=== PATIENT | male | born 1945 | race Hispanic/Latino ===

== ENCOUNTER 2020-04-30 13:18 | Emergency (ER) | payer MEDICARE ==
[~2020-04-30] VITALS: Ht 165.1 cm; Wt 66.8 kg
--- NOTE | 2020-04-30 13:19 | NUR ---
Used [employer] designer line ID# [id number] [place] for translation.
[2020-04-30] MEDS ORDERED: SODIUM CHLORIDE 0.9% 500ML 500 ML IV ONE ×2 (13:30→13:45)
--- NOTE | 2020-04-30 13:30 | NUR ---
Called ultrasound for exam
--- NOTE | 2020-04-30 13:34 | Emergency Department Note ---
History of Present Illnes History of Present Illness History of Present Illness This is a 75 year old male . Historian: Patient Arrival Mode: Car History limited by: language barrier [employer] Required: No Onset (how long ago): day(s) Location: Right sided abd pain Quality: pain Radiation: Reports non-radiation Severity: mild Onset quality: gradual Duration (how long): day(s) Timing of current episode: constant Progression: unchanged Chronicity: new Context: Denies recent illness, Denies recent surgery, Denies recent immobilization, Denies recent travel, Denies trauma/injury, Denies new medications, Denies hx of DVT/PE, Denies non-compliance w/ medications, Denies other Relieving factors: none Exacerbating factors: none Associated symptoms: Denies chest pain, Denies loss of appetite, Denies nausea/vomiting, Denies shortness of breath Treatments prior to arrival: none Past Medical/Family History Physician Review I have reviewed the patient's past medical and family history. Any updates have been documented here. Past Medical History Recent Fever: No Clinical Suspicion of Infectio: No New/Unexplained Change in Ment: No Past Medical History: Hypertension Past Surgical History: Hernia Repair Social History Smoking Cessation: Never Smoker Alcohol Use: None Any Illegal Drug Use: No Review of Systems Review of Systems Constitutional: Denies no symptoms, Denies as per HPI, Denies chills, Denies diaphoresis, Denies fever, Denies malaise, Denies weakness, Denies other Cardiovascular: Denies chest pain Gastrointestinal: Reports as per HPI, Reports abdominal pain Physical Exam Related Data Allergies: Coded Allergies: No Known Allergies (Unverified , 04/30/20) Vital signs reviewed: Yes Physical Exam CONSTITUTIONAL Constitutional: Present well-developed HENT HENT: Present normocephalic EYES Eyes: Reports conjunctivae normal NECK Neck: Present supple PULMONARY Pulmonary: Present breath sounds normal CARDIOVASCULAR Cardiovascular: Present regular rhythm GASTROINTESTINAL Abdominal: Present soft, Present tender (NICOLA and RLQ) GENITOURINARY Genitourinary: Present exam deferred SKIN Skin: Present warm MUSCULOSKELETAL Musculoskeletal: Present ROM normal NEUROLOGICAL Neurological: Present alert PSYCHOLOGICAL Results Laboratory Laboratory CBC, CMP and lactic acid normal Lab results reviewed: Yes Imaging Imaging results reviewed: Yes Impressions EXAM: Right Upper Quadrant Ultrasound INDICATION: pain COMPARISON: None. TECHNIQUE: Transverse and longitudinal images of the right upper abdomen were obtained. FINDINGS: Liver: Size: 14.9 cm in the right midclavicular line, Normal Appearance: Increased echogenicity, smooth contour Mass: No focal masses Gallbladder: Gallbladder is decompressed Stones/Sludge: None Wall: 0.4 cm, this could be due to underdistention Appearance: No pericholecystic fluid or hydrops. Sonographic Huntley's Sign: Negative Bile Ducts: Intrahepatic Ducts: No dilatation Extrahepatic Ducts: Common bile duct measures 0.4 cm, no dilatation Pancreas: Visualized portions of the pancreatic head, neck and proximal body are normal. Vessels: Aorta: Visualized portions are normal Inferior Vena Cava: Visualized portions are normal Main Portal Vein: 0.7 cm, normal size with hepatopetal flow. Free Fluid: No ascites or pleural effusion IMPRESSION: Diffuse hepatic steatosis without focal mass. Imaging Comments EXAM: CT Abdomen and Pelvis WITH contrast INDICATION: pain COMPARISON: Right upper quadrant ultrasound performed same day. TECHNIQUE: Abdomen and pelvis were scanned utilizing a multidetector helical scanner from the lung base to the pubic symphysis after administration of IV contrast. Coronal and sagittal reformations were obtained. Dose modulation, iterative reconstruction, and/or weight based adjustment of the mA/kV was utilized to reduce the radiation dose to as low as reasonably achievable. Routine protocol was performed. Scan was performed when during portal venous phase. IV CONTRAST: 150 mL of Omnipaque 300 ORAL CONTRAST: Water COMPLICATIONS: None RADIATION DOSE: Total DLP: 463.19 mGy-cm Estimated effective dose: (DLP x 0.015 x size factor) mSv CTDIvol has been reviewed. It is below the limits set by the Radiation Protocol Committee (RPC). FINDINGS: LINES and TUBES: None. LOWER THORAX: There is bibasilar atelectasis. There are calcified granuloma in the right lower lobe. There is focal pleural thickening in the left lower lung (series 2, image 12), indeterminate. HEPATOBILIARY: The liver is diffuse hypodense compared to the spleen, consistent with diffuse hepatic diffuse hepatic steatosis. Multiple subcentimeter low-density lesion in the right hepatic lobe (series 2, image 32 and 16) incompletely characterized on this exam. No biliary ductal dilation. GALLBLADDER: No radio-opaque stones or sludge. No gallbladder wall thickening. SPLEEN: No splenomegaly. No focal splenic lesion. PANCREAS: No focal masses or ductal dilatation. ADRENALS: No adrenal nodules KIDNEYS/URETERS: Kidneys enhance symmetrically. No hydronephrosis. No cystic or solid mass lesions. No stones. GI TRACT: There is a moderate hiatal hernia with thickening of distal esophagus. No abnormal distention or evidence of bowel obstruction. There are multiple diverticula within the sigmoid colon with very faint adjacent stranding which could be due to small degree of inflammation (series 2, image 70). PELVIC ORGANS/BLADDER: The bladder is unremarkable. LYMPH NODES: No lymphadenopathy. VESSELS: No aortic aneurysm or dissection. PERITONEUM / RETROPERITONEUM: No free air or fluid. BONES: There are degenerative changes in the spine. SOFT TISSUES: There is a small fat containing right inguinal hernia. IMPRESSION: 1. Multiple diverticula within the sigmoid colon with very faint adjacent stranding could be due to small degree of inflammation. 2. Moderate hiatal hernia with thickening of distal esophagus. Recommend further evaluation endoscopy. 3. Mild hepatic steatosis with subcentimeter low-density lesions are seen in the light hepatic lobe, too small to adequately characterize. 4. Focal pleural thickening in the left lower lung, indeterminate. Recommend attention on follow-up. 5. Small fat containing right inguinal hernia. Signed by: Joel Ortiz MD on 04/30/2020 5:18 PM Dictated By: JOEL ORTIZ MD 17 Transcribed By: KOSTAS on 04/30/201717 Procedures 12 Lead ECG Interpretation ECG Interpretation : ECG: ECG 1 Date: Apr 30, 2020 Time: 13:43 Prior ECG tracings: reviewed Rhythm: sinus rhythm Rate: normal QRS axis: normal ST segments normal: Yes T waves normal: Yes Clinical Impression: normal ECG Assessment & Plan Medical Decision Making MDM ACS, Aggie, Appy, Cancer, Diverticulitis, perforation Assessment & Plan Final Impression: (1) Diverticulitis (2) Hypertension Depart Disposition: HOME, SELF-[facility] Meds Active Scripts Docusate Sodium (COLACE) 100 Mg Cap, 100 MG PO BID for 10 Days, #30 CAP Prov:HARLEY MUNROE MD 04/30/20 Amoxicillin/Potassium Clav (AUGMENTIN 875-125 TABLET) 1 Each Tablet, 1 EACH PO BID for 10 Days, #20 Prov:HARLEY MUNROE MD 04/30/20 Reported Medications Losartan Potassium (LOSARTAN POTASSIUM) 25 Mg Tablet, DAILY 04/30/20 Medications in the ED Sodium Chloride 500 ml @ 0 mls/hr Q0M ONCE IV ; Start 04/30/20 at 13:30; Stop 04/30/20 at 13:31; Status DC HARLEY MUNROE MD Apr 30, 2020 13:34
[2020-04-30] MEDS ORDERED: KETOROLAC TROMETHAMINE 30 MG/ML VIAL IV ONE (13:35)
[2020-04-30] MEDS ORDERED: LOSARTAN POTASS25 MG (13:36)
[2020-04-30] MEDS ORDERED: SODIUM CHLORIDE 0.9% 500ML 500 ML ONE (13:46)
[2020-04-30] MEDS ORDERED: DIATRIZOATE MEGL/DIATRIZOA SOD 30 ML BTL PO ONE (13:58)
--- NOTE | 2020-04-30 14:28 | NUR ---
Called [facility] to transport pt to [facility] for a CT.
--- NOTE | 2020-04-30 15:22 | Diagnostic Imaging Report ---
EXAM: Right Upper Quadrant Ultrasound INDICATION: pain COMPARISON: None. TECHNIQUE: Transverse and longitudinal images of the right upper abdomen were obtained. FINDINGS: Liver: Size: 14.9 cm in the right midclavicular line, Normal Appearance: Increased echogenicity, smooth contour Mass: No focal masses Gallbladder: Gallbladder is decompressed Stones/Sludge: None Wall: 0.4 cm, this could be due to underdistention Appearance: No pericholecystic fluid or hydrops. Sonographic Huntley's Sign: Negative Bile Ducts: Intrahepatic Ducts: No dilatation Extrahepatic Ducts: Common bile duct measures 0.4 cm, no dilatation Pancreas: Visualized portions of the pancreatic head, neck and proximal body are normal. Vessels: Aorta: Visualized portions are normal Inferior Vena Cava: Visualized portions are normal Main Portal Vein: 0.7 cm, normal size with hepatopetal flow. Free Fluid: No ascites or pleural effusion IMPRESSION: Diffuse hepatic steatosis without focal mass. Signed by: Joel Okaley MD on 04/30/2020 3:19 PM
[2020-04-30] MEDS ORDERED: SODIUM CHLORIDE 0.9% 50ML 50 ML ONE (15:55)
[2020-04-30] MEDS ORDERED: IOPAMIDOL 370 MG/ML 200 ML INFUS..BTL INJ ONE (15:56)
--- NOTE | 2020-04-30 17:21 | Diagnostic Imaging Report ---
EXAM: CT Abdomen and Pelvis WITH contrast INDICATION: pain COMPARISON: Right upper quadrant ultrasound performed same day. TECHNIQUE: Abdomen and pelvis were scanned utilizing a multidetector helical scanner from the lung base to the pubic symphysis after administration of IV contrast. Coronal and sagittal reformations were obtained. Dose modulation, iterative reconstruction, and/or weight based adjustment of the mA/kV was utilized to reduce the radiation dose to as low as reasonably achievable. Routine protocol was performed. Scan was performed when during portal venous phase. IV CONTRAST: 150 mL of Omnipaque 300 ORAL CONTRAST: Water COMPLICATIONS: None RADIATION DOSE: Total DLP: 463.19 mGy-cm Estimated effective dose: (DLP x 0.015 x size factor) mSv CTDIvol has been reviewed. It is below the limits set by the Radiation Protocol Committee (RPC). FINDINGS: LINES and TUBES: None. LOWER THORAX: There is bibasilar atelectasis. There are calcified granuloma in the right lower lobe. There is focal pleural thickening in the left lower lung (series 2, image 12), indeterminate. HEPATOBILIARY: The liver is diffuse hypodense compared to the spleen, consistent with diffuse hepatic diffuse hepatic steatosis. Multiple subcentimeter low-density lesion in the right hepatic lobe (series 2, image 32 and 16) incompletely characterized on this exam. No biliary ductal dilation. GALLBLADDER: No radio-opaque stones or sludge. No gallbladder wall thickening. SPLEEN: No splenomegaly. No focal splenic lesion. PANCREAS: No focal masses or ductal dilatation. ADRENALS: No adrenal nodules KIDNEYS/URETERS: Kidneys enhance symmetrically. No hydronephrosis. No cystic or solid mass lesions. No stones. GI TRACT: There is a moderate hiatal hernia with thickening of distal esophagus. No abnormal distention or evidence of bowel obstruction. There are multiple diverticula within the sigmoid colon with very faint adjacent stranding which could be due to small degree of inflammation (series 2, image 70). PELVIC ORGANS/BLADDER: The bladder is unremarkable. LYMPH NODES: No lymphadenopathy. VESSELS: No aortic aneurysm or dissection. PERITONEUM / RETROPERITONEUM: No free air or fluid. BONES: There are degenerative changes in the spine. SOFT TISSUES: There is a small fat containing right inguinal hernia. IMPRESSION: 1. Multiple diverticula within the sigmoid colon with very faint adjacent stranding could be due to small degree of inflammation. 2. Moderate hiatal hernia with thickening of distal esophagus. Recommend further evaluation endoscopy. 3. Mild hepatic steatosis with subcentimeter low-density lesions are seen in the light hepatic lobe, too small to adequately characterize. 4. Focal pleural thickening in the left lower lung, indeterminate. Recommend attention on follow-up. 5. Small fat containing right inguinal hernia. Signed by: oJel Oakley MD on 04/30/2020 5:18 PM
[2020-04-30] MEDS ORDERED: COLACE100 MG PO (17:32)
[2020-04-30] MEDS ORDERED: AUGMENTIN 875-1 EACH PO (17:32)
[2020-04-30 19:43] VITALS: BP 160/89
== END 2020-04-30 17:47 | disposition home or self-care (01) ==
LOC: FSED 13:35
DX: R10.11 Right upper quadrant pain (principal); K57.92 Diverticulitis of intestine, part unspecified, without perforation or abscess without bleeding; K44.9 Diaphragmatic hernia without obstruction or gangrene; K76.0 Fatty (change of) liver, not elsewhere classified; R91.8 Other nonspecific abnormal finding of lung field
CPT/HCPCS: 36415; 74177; 76705; 80048; 80053; 80076; 81003; 83690; 85025; 93005; 96374; 99284; J1885; J7040; Q9967

== ENCOUNTER 2020-06-23 11:10 | Emergency (ER) | payer MEDICARE ==
[~2020-06-23] VITALS: Ht 165.1 cm; Wt 66.7 kg
[~2020-06-23 11:10] MED LIST: AUGMENTIN 875-1 EACH PO; COLACE100 MG PO; LOSARTAN POTASS25 MG
[2020-06-23] MEDS ORDERED: SODIUM CHLORIDE 0.9% 1000ML 1,000 ML IV SCH (11:30)
[2020-06-23] MEDS ORDERED: PANTOPRAZOLE 40 MG 10ML VIAL IV STA (11:30)
[2020-06-23] MEDS ORDERED: DONNATAL/LIDOCAINE/MAALOX 30 ML SUSP PO STA (11:30)
--- NOTE | 2020-06-23 11:35 | Emergency Department Note ---
History of Present Illnes History of Present Illness Chief Complaint: Abdominal Complaints History of Present Illness This is a 75 year old male Chief Complaint Comment DIFFUSE ABD PAIN FOR MONTHS. SEEN IN ER BACK IN APRIL AND GIVEN ANTIBIOTICS AND COLACE. PT STATES IT DID HELP HIS ABD PAIN, BUT OUT OF RX AND WANTS REFILL. PT CANT GET INTO GI AT [facility] YET AND STATES STILL HURTING. Historian: Patient, Family Member Arrival Mode: Car Onset (how long ago): month(s) Location: Abdomen Quality: dull Radiation: Reports non-radiation Severity: moderate Onset quality: unable to specify Duration (how long): month(s) Timing of current episode: constant Progression: unchanged Chronicity: chronic Context: Denies recent illness, Denies recent surgery Relieving factors: none Exacerbating factors: none Associated symptoms: Reports denies other symptoms Treatments prior to arrival: none Past Medical/Family History Physician Review I have reviewed the patient's past medical and family history. Any updates have been documented here. Past Medical History Recent Fever: No Clinical Suspicion of Infectio: No New/Unexplained Change in Ment: No Past Medical History: Hypertension Past Surgical History: Hernia Repair Social History Smoking Cessation: Unknown if ever smoked Counseling Performed: No Alcohol Use: None Any Illegal Drug Use: No Physically hurt or threatened: No Other Any Pre-Existing Lines (PICC,: No Review of Systems Review of Systems Constitutional: Reports no symptoms EENTM: Reports no symptoms Cardiovascular: Reports no symptoms Respiratory: Reports no symptoms Gastrointestinal: Reports as per HPI, Reports abdominal pain, Reports constipation; Denies diarrhea, Denies nausea, Denies vomiting Genitourinary: Reports no symptoms Musculoskeletal: Reports no symptoms Integumentary: Reports no symptoms Neurological: Reports no symptoms Psychological: Reports no symptoms Endocrine: Reports no symptoms Hematological/Lymphatic: Reports no symptoms Physical Exam Related Data Allergies: Coded Allergies: No Known Allergies (Unverified , 04/30/20) Triage Vital Signs Vital Signs Date Time Temp Pulse Resp B/P (MAP) Pulse Ox O2 Delivery O2 Flow Rate FiO2 06/23/20 11:22 98.9 60 16 156/81 96 Room Air Vital signs reviewed: Yes Physical Exam CONSTITUTIONAL Constitutional: Present well-developed, Present well-nourished HENT HENT: Present normocephalic, Present atraumatic, Present oropharynx clear/moist, Present nose normal HENT L/R: Present left ext ear normal, Present right ext ear normal EYES Eyes: Reports PERRL, Reports conjunctivae normal NECK Neck: Present ROM normal PULMONARY Pulmonary: Present effort normal, Present breath sounds normal CARDIOVASCULAR Cardiovascular: Present regular rhythm, Present heart sounds normal, Present capillary refill normal, Present normal rate GASTROINTESTINAL Abdominal: Present soft, Present nontender (Discomfort), Present bowel sounds normal GENITOURINARY Genitourinary: Present exam deferred SKIN Skin: Present warm, Present dry MUSCULOSKELETAL Musculoskeletal: Present ROM normal NEUROLOGICAL Neurological: Present alert, Present oriented x 3, Present no gross motor or sensory deficits PSYCHOLOGICAL Psychological: Present mood/affect normal, Present judgement normal Assessment & Plan Medical Decision Making MDM 75 y.o M presents for diffuse abdominal discomfort is aggravated by eating. He is seen in the emergency department 2 months ago for the same. He states initially got better but then got worse again. Denies any other medical problems except for hypertension for just taking medications. He has a appointment next week with GI but states he cannot take the discomfort anymore and wanted to see if there is anything that could help. Denies any other symptoms. Examination shows discomfort in the abdomen but no overt focal tenderness. Workup including CT and labs are sig for hiatal hernia. Instructed him to take omeprazole and miralax until his appointment next with with GI for EDG. Patient and family sate agreement to plan, stable for discharge. Reassessment Reassessment time: 13:42 Reassessment Pain improved Assessment & Plan Final Impression: (1) Hiatal hernia Depart Disposition: HOME, SELF-CARE Last Vital Signs Date Time Temp Pulse Resp B/P (MAP) Pulse Ox O2 Delivery O2 Flow Rate FiO2 06/23/20 11:22 98.9 60 16 156/81 96 Room Air Home Meds Active Scripts Docusate Sodium (COLACE) 100 Mg Cap, 100 MG PO BID for 10 Days, #30 CAP Prov:HARLEY MUNROE MD 04/30/20 Amoxicillin/Potassium Clav (AUGMENTIN 875-125 TABLET) 1 Each Tablet, 1 EACH PO BID for 10 Days, #20 Prov:HARLEY MUNROE MD 04/30/20 Reported Medications Losartan Potassium (LOSARTAN POTASSIUM) 25 Mg Tablet, DAILY 04/30/20 BRUCE HENDERSON MD Jun 23, 2020 11:35
--- OUTSIDE RECORDS SUMMARY | 2020-06-23 11:44 | XMS REPORT | Continuity of Care Document ---
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 Role Phone [employer] Unavailable Un available Problems Problem Status Onset Date Classification Date Reported Comments Source H90.5 - UNSPECIFIED SENSORINEURAL HEAR Active 01/28/2017 [facility] [place] OTHER Active 12/28/2011 [place] UNABLE TO URINATE Active 12/26/2011 [facility] UMBILICAL HERNIA Active 12/10/2011 [facility] Benign essential hypertension (disorder) Active Problem 12/29/2019 [facility] Benign prostatic hypertroph with outflow obstruction (disorder) Active Prob ryan 12/29/2019 [facility] Cobalamin deficiency (disorder) Active [facility] Decreased vitamin D (finding) Active [facility] Gastroesophageal reflux disease (disorder) Active Problem 12/29/2019 [facility] Tingling of skin (finding) Act dave [facility] Impaired fasting glycaemia (disorder) Active Problem [facility] Cataract (disorder) Active Problem 12/29/2019 [facility] Mixed hyperlipidemia (disorder) Active Problem [facility] Obesity (disorder) Active Problem 12/29/2019 [facility] Patient encounter status (finding) Active [facility] Peripheral arterial occlusive disease (disorder) Active Problem 12/29/2019 [facility] Screening status (finding) Act dave [facility] Claudication (finding) Active Problem 12/29/2019 [facility] Viral screening status (finding) Active Problem [facility] Intermittent claudication (disorder) Active Problem [facility] UMBILICAL HERNIA Active [facility] ANXIETY ATTACK Active [facility] Medications Medication Details Route Status Patient Instructions Ordering Provider Order Date Source finasteride 5 mg oral tablet 5 mg = 1 tab, PO, Daily, # 90 tab, 1 Refill(s), Pharmacy: [facility] #[id number] Active 10/25/2019 [facility] Hydrochlorothiazide 12.5 MG / Losartan P otassium 50 MG Oral Tablet 1 tab, PO, Daily, # 90 tab, 1 Refill(s), Pharmacy: [facility] #[id number] Active 08/26/2019 [facility] simvastatin 20 mg oral tablet 20 mg = 1 tab, PO, Bedtime, # 90 tab, 1 Refill(s), [id number] Active 08/26/2019 [facility] DME Addition #1 See Instructio ns, MELATONIN 10 mg q d, # 30 tab, 0 Refill(s) Active 01/13/2019 [facility] finasteride 5 mg oral tablet = 1 tab, PO, Daily, # 90 tab, 1 Refill(s), Pharmacy: [facility] [id number] Active 01/13/2019 [facility] omeprazole 40 mg oral delayed release capsule 40 mg = 1 cap, PO, Daily, # 90 cap, 0 Refill(s), [facility] [id number] Active 01/13/2019 [facility] gabapentin 300 MG Oral Capsule 300 mg = 1 cap, PO, BID, # 180 cap, 0 Refill(s), [facility]: [facility] [id number] Active 01/13/2019 [facility] simvastatin 20 mg oral tablet 20 mg = 1 tab, PO, Bedtime, # 90 tab, 1 Refill(s), Pharmacy: [facility] [id number] Active 03/11/2018 [facility] finasteride 5 mg oral tablet 5 mg = 1 tab, PO, Daily, # 90 tab, 0 Refill(s), [facility]: [facility] [id number] Active 03/11/2018 [facility] Ergocalciferol 27836 UNT Oral Capsule 50,000 IntlUnit = 1 cap, PO, qWeek, # 12 cap, 1 Refill(s), [facility]: [facility] [id number] Active 03/11/2018 [facility] cilostazol 50 mg oral tablet 5 0 mg = 1 tab, PO, BID, # 90 tab, 1 Refill(s), [facility] [id number] Active 03/11/2018 [facility] Aspirin 81 MG Enteric Coated Tablet 81 mg = 1 tab, PO, Daily, # 90 tab, 1 Refill(s), Pharmacy: [facility] [id number] Active 03/11/2018 [facility] pantoprazole 40 mg oral enteric coated tablet 40 mg = 1 tab, PO, Daily, # 90 tab, 1 Refill(s), Pharmacy: [facility] [id number] Active 03/11/2018 [facility] Hydrochlorothiazide 12.5 MG / Losartan P otassium 50 MG Oral Tablet 1 tab, PO, Daily, # 90 tab, 1 Refill(s), Pharmacy: [facility] [id number] Active 03/11/2018 [facility] Aspirin 81 MG Enteric Coated Tablet 81 mg = 1 tab, PO, Daily, # 90 tab, 1 Refill(s), Pharmacy: [facility] [id number] Active 11/11/2017 [facility] simvastatin 20 mg oral tablet 20 mg = 1 tab, PO, Bedtime, # 90 tab, 1 Refill(s), Pharmacy: [facility] [id number] Active 11/11/2017 [facility] Ergocalciferol 88691 UNT Oral Capsule 50,000 IntlUnit = 1 cap, PO, qWeek, # 12 cap, 1 Refill(s), Pharmacy: [facility] [id number] Active 11/11/2017 [facility] cilostazol 50 mg oral tablet 5 0 mg = 1 tab, PO, BID, # 90 tab, 1 Refill(s), Pharmacy: [facility] [id number] Active 11/03/2017 [facility] Aspirin 81 MG Enteric Coated Tablet 81 mg = 1 tab, PO, Daily, # 90 tab, 1 Refill(s), Pharmacy: [facility] [id number] No Longer Active 11/03/2017 [facility] finasteride 5 mg oral tablet 5 mg = 1 tab, PO, Daily, # 90 tab, 0 Refill(s), Pharmacy: [facility] [id number] Active 11/03/2017 [facility] lisinopril 10 mg, 1 tab, Route : PO, Drug form: TAB, ONCE, Priority: STAT, Start date: 12/26/11 15:05:00, Stop date: 12/26/11 15:05:00 PO No Longer Active [place] 12/26/2011 [facility] hydrALAZINE 10 mg, Route: IV, ONCE, Start date: 12/26/11 14:54:00, Stop date: 12/26/11 14:54:00 IV No Longer Active [place] 12/26/2011 [facility] ondansetron 4 mg, 2 mL, Route: IVP, Drug form: INJ, ONCE, PRN Nausea & Vomiting, Start date: 12/26/11 14:25:00 IVP No Longer Active [place] 12/26/2011 [facility] naloxone 0.04 mg, 0.1 mL, Rout e: IVP, Drug form: INJ, Q2MIN, PRN Narcotic Reversal, Start date: 12/26/11 14:25:00, Duration: 8 doses or times, Stop date: 12/27/11 0:00:00 IVP No Longer Active [place] 12/26/2011 [facility] flumazenil 0.2 mg, 2 mL, Route : IVP, Drug form: INJ, PRN, PRN Benzodiazepine Reversal, Initial dose, Start date: 12/26/11 14:25:00, Stop date: 12/27/11 0:00:00 IVP No Longer Active [place] 12/26/2011 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 nter ondansetron 4 mg, Route: IVP, ONCE, PRN Nausea & Vomiting, Start date: 12/26/11 14:24:00 IVP No Longer Active [place] 12/26/2011 [facility] flumazenil 0.2 mg, Route: IVP, PRN, PRN Benzodiazepine Reversal, Initial dose, Start date: 12/26/11 14:24:00, Duration: 30 day, Stop date: 01/25/12 14:23:00 IVP No Longer Active [place] 12/26/2011 [facility] nter naloxone 0.04 mg, Route: IVP, Q2MIN, PRN Narcotic Reversal, Start date: 12/26/11 14:24:00, Duration: 8 doses or times, Stop date: Limited # of times IVP No Longer Active [place] 12/26/2011 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 nter labetalol 5 mg, Route: IVP, Q5 Min, PRN Elevated BP, Start date: 12/26/11 14:24:00, Duration: 5 doses or times, Stop date: Limited # of times IVP No Longer Active [place] 12/26/2011 [facility] cefazolin 2 gm, 100 mL, Route: IVPB, Drug form: INJ, PRE OP, Start date: 12/26/11 0:00:00, Duration: 1 day, Stop date: 12/26/11 23:59:[address] [facility] 12/25 [facility] Pravachol Substitution Allowed , dose unknown, 1 tab, PO dailydose unknown, 1 tab, PO daily Active 12/19/2011 [facility] nter lisinopril 10 mg oral tablet 1 0 mg, 1 tab, PO, Daily, 30 tab, Substitution Allowed, TAB PO Active 12/19/2011 [facility] nter Allergies, Adverse Reactions, Alerts Substance Category Reaction Severity Reaction type Status Date Reported Comments Source No Known Medication Allergies Assertion Drug aller gy [facility] Immunizations Immunization Date Given Site Status Last Updated Comments Source influenza virus vaccine, inactivated 08/26/2019 Left deltoid completed [place] [facility] influenza virus vaccine, inactivated 11/03/2017 Left Deltoid completed Jaison Oscar [facility] pneumococcal 23-valent vaccine 03/06/2016 batsheva Enriquez [facility] Results Order Name Results Value Reference Range Date Interpretation Comments Source CHEMISTRY A/G Ratio 1.1 0.7 - 1.6 12/19/2011 Normal [facility] CHEMISTRY Globulin 3.8 2.0 - 4.0 12/19/2011 Normal [facility] CHEMISTRY B/C Ratio 24 6 - 25 12/19/2011 Normal [facility] CHEMISTRY AGAP 15.0 10.0 - 20.0 12/19/2011 Normal [facility] CHEMISTRY Calcium Lvl 8.5 8.5 - 10.5 12/19/2011 Normal [facility] CHEMISTRY CO2 25 24 - 32 12/19/2011 Normal [facility] CHEMISTRY Bili Total 0.4 0.2 - 1.3 12/19/2011 Normal [facility] CHEMISTRY Total Protein 7.9 6.4 - 8.4 12/19/2011 Normal [facility] CHEMISTRY AST 26 0 - 37 12/19/2011 Normal [facility] CHEMISTRY Alk Phos 89 39 - 136 12/19/2011 Normal [facility] CHEMISTRY Glucose Lvl 102 12/19/2011 NA <sup>1</sup>Interpretive Data: Reference Ranges : 0 - 7 days : 41 - 90 mg/dL 7 days - 150 yrs : 70 - 99 mg/dL (fasting), based on the clinical recommendations of the [employer]. [facility] CHEMISTRY BUN 17 7 - 22 12/19/2011 Normal [facility] CHEMISTRY Creatinine Lvl 0.7 0.5 - 1.4 12/19/2011 Normal [facility] CHEMISTRY Sodium Lvl 142 135 - 145 12/19/2011 Normal [facility] CHEMISTRY Potassium Lvl 5.0 3.5 - 5.1 12/19/2011 Normal [facility] CHEMISTRY Chloride Lvl 107 95 - 109 12/19/2011 Normal [facility] CHEMISTRY Albumin Lvl 4.1 3.5 - 5.0 12/19/2011 Normal [facility] CHEMISTRY ALT 32 0 - 65 12/19/2011 Normal [facility] HEMATOLOGY Basophils 0.4 0.0 - 1.0 12/19/2011 Normal [facility] HEMATOLOGY Segs-Bands # 5.1 1.5 - 8.1 12/19/2011 Normal [facility] HEMATOLOGY Eosinophils 1.6 0.0 - 4.0 12/19/2011 Normal [facility] HEMATOLOGY Basophils # 0.0 0.0 - 0.2 12/19/2011 Normal [facility] HEMATOLOGY Eosinophils # 0.1 0.0 - 0.5 12/19/2011 Normal [facility] HEMATOLOGY Monocytes # 0.8 0.0 - 0.8 12/19/2011 Normal [facility] HEMATOLOGY Lymphocytes # 1.0 1.0 - 5.5 12/19/2011 Normal [facility] HEMATOLOGY Segs 71.7 45.0 - 75.0 12/19/2011 Normal [facility] HEMATOLOGY Lymphocytes 14.7 20.0 - 40.0 12/19/2011 LOW [facility] HEMATOLOGY Monocytes 11.6 2.0 - 12.0 12/19/2011 Normal [facility] HEMATOLOGY Platelet 255 133 - 450 12/19/2011 Normal [facility] HEMATOLOGY MPV 9.9 7.4 - 10.4 12/19/2011 Normal [facility] HEMATOLOGY RDW 14.1 11.5 - 14.5 12/19/2011 Normal [facility] HEMATOLOGY MCHC 33.8 32.0 - 36.0 12/19/2011 Normal [facility] HEMATOLOGY MCV 86.3 80.0 - 94.0 12/19/2011 Normal [facility] HEMATOLOGY MCH 29.2 27.0 - 31.0 12/19/2011 Normal [facility] HEMATOLOGY Hct 42.4 42.0 - 54.0 12/19/2011 Normal [facility] HEMATOLOGY Hgb 14.3 14.0 - 18.0 12/19/2011 Normal [facility] HEMATOLOGY WBC 7.1 3.7 - 10.4 12/19/2011 Normal [facility] HEMATOLOGY RBC 4.91 4.70 - 6.10 12/19/2011 Normal [facility] URINALYSIS Micro? Perfo rmed *NA* (12/19/2011 15:45:00) 12/19/2011 [facility] URINALYSIS UA Sq Epi Occas ional /LPF *NA* (12/19/2011 15:45:00) Few 12/19/2011 [facility] URINALYSIS UA Leuk Est Negat dave (12/19/2011 15:45:00) Negati ve 12/19/2011 Normal [facility] URINALYSIS UA RBC 2 0 - 2 12/19/2011 Normal [facility] URINALYSIS UA Mucus Few / LPF *NA* (12/19/2011 15:45:00) None S een 12/19/2011 NA [facility] URINALYSIS UA WBC <1 0 - 5 12/19/2011 Normal [facility] URINALYSIS UA Nitrite Negat dave (12/19/2011 15:45:00) Negati ve 12/19/2011 Normal [facility] URINALYSIS UA Spec Grav 1.025 <=1.030 12/19/2011 Normal [facility] URINALYSIS UA Turbidity Clear (12/19/2011 15:45:00) Clear 12/19/2011 Normal [facility] URINALYSIS UA Blood Negat dave (12/19/2011 15:45:00) Negati ve 12/19/2011 Normal [facility] URINALYSIS UA Bili Negat dave *NA* (12/19/2011 15:45:00) Negati ve 12/19/2011 NA [facility] URINALYSIS UA Ketones Negat dave mg/dL *NA* (12/19/2011 15:45:00) Negati ve 12/19/2011 NA [facility] URINALYSIS UA Urobilinogen 2.0 0.1 - 1.0 12/19/2011 [place] [facility] URINALYSIS UA Glucose Negat dave mg/dL *NA* (12/19/2011 15:45:00) Negati ve 12/19/2011 NA [facility] URINALYSIS UA pH 6.0 5.0 - 8.0 12/19/2011 Normal [facility] URINALYSIS UA Color Yello w *NA* (12/19/2011 15:45:00) Yellow 12/19/2011 NA [facility] URINALYSIS UA Protein 20 mg /dL *ABN* (12/19/2011 15:45:00) Negati ve 12/19/2011 ABN [facility] Pathology Reports No Data Provided for This Section Diagnostic Reports Report Value Date Source Int Auditory Canal w/wo contrast MRI MRI IAC WITH AND WITHOUT CONTRAST INDICATION: Right-sided hearing loss, H90.5 Unspecified sensorineural hearing loss COMPARISON: None DISCUSSION: No abnormalities are seen in the internal auditory canals, cerebellopontine angle cisterns, or in the brainstem. The labyrinthine structures are unremarkable. The bilateral mastoid air cells are grossly clear. Chronic age-related changes of the brain are incidentally noted, characterized by generalized brain atrophy and microangiopathic changes of the white matter. IMPRESSION: No abnormalities of the CP angle cisterns or temporal bone structures are identified. SL:16 02/04/2017 REGMelvi Shay Prostate Transrectal US Transr ectal prostate ultrasound: HISTORY: Benign prostate hypertrophy FINDINGS: Transrectal evaluation shows normal seminal vesicles on each side. There are some small cysts and shadowing calcifications in each prosthetic lobe. No definite solid nodule. The prostate is enlarged with estimated volume of 73 cc. (5.8 x 4.5 x 5.3 cm) IMPRESSION: Prostate enlargement SL: 01/18/2015 LOKI Collazo Consultation Notes No Data Provided for This Section Discharge Summaries No Data Provided for This Section History and Physicals No Data Provided for This Section Vital Signs Vital Sign Value Date Comments Source Systolic (mm Hg) 163 08/26/2019 [facility] Diastolic (mm Hg) 87 08/26/2019 [facility] Heart Rate 71 08/26/2019 [facility] Temperature Oral (F) 98.2 F 08/26/2019 [facility] Height 165.1 cm 08/26/2019 [facility] Weight 67.784 08/26/2019 [facility] BMI Calculated 24.87 08/26/2019 [facility] Weight 67.273 01/13/2019 [facility] BMI Calculated 23.23 01/13/2019 [facility] Height 170.18 cm 01/13/2019 [facility] Systolic (mm Hg) 135 01/13/2019 [facility] Diastolic (mm Hg) 71 01/13/2019 [facility] Heart Rate 64 01/13/2019 [facility] Temperature Oral (F) 97.1 F 01/13/2019 [facility] Respitory Rate 16 01/13/2019 [facility] BMI Calculated 23.72 03/11/2018 [facility] Weight 68.693 03/11/2018 [facility] Systolic (mm Hg) 129 03/11/2018 [facility] Diastolic (mm Hg) 73 03/11/2018 [facility] Temperature Oral (F) 97.6 F 03/11/2018 [facility] Heart Rate 66 03/11/2018 [facility] Height 170.18 cm 03/11/2018 [facility] Height 170.18 cm 11/11/2017 [facility] Heart Rate 85 11/11/2017 [facility] Respitory Rate 14 11/11/2017 [facility] Temperature Oral (F) 98.2 F 11/11/2017 [facility] Weight 69.659 11/11/2017 [facility] BMI Calculated 24.05 11/11/2017 [facility] Systolic (mm Hg) 124 11/11/2017 [facility] Diastolic (mm Hg) 72 11/11/2017 [facility] BMI Calculated 24.17 11/03/2017 [facility] Weight 70 0 11/03/2017 [facility] Height 170.18 cm 11/03/2017 [facility] Systolic (mm Hg) 137 11/03/2017 [facility] Diastolic (mm Hg) 78 11/03/2017 [facility] Heart Rate 68 11/03/2017 [facility] Respitory Rate 14 11/03/2017 [facility] Temperature Oral (F) 98.7 F 11/03/2017 [facility] Weight 72.727 12/28/2011 [place] Height 165.10 cm 12/28/2011 [facility] Height 162.56 cm 12/27/2011 [facility] Weight 72.727 12/27/2011 [facility] Respitory Rate 15 12/26/2011 [facility] Systolic (mm Hg) 135 12/26/2011 [facility] Diastolic (mm Hg) 82 12/26/2011 [facility] Heart Rate 81 12/26/2011 [facility] Systolic (mm Hg) 131 12/26/2011 [facility] Diastolic (mm Hg) 79 12/26/2011 [facility] Heart Rate 80 12/26/2011 [facility] Respitory Rate 15 12/26/2011 [facility] Diastolic (mm Hg) 83 12/26/2011 [facility] Systolic (mm Hg) 153 12/26/2011 [facility] Heart Rate 69 12/26/2011 [facility] Respitory Rate 12 12/26/2011 [facility] Weight 72.727 12/26/2011 [facility] Height 167.64 cm 12/19/2011 [facility] Encounters Location Location Details Encounter Type Encounter Number Reason For Visit Attending Provider ADM Date DC Date Status Source [facility] DS [id number] UMBILICAL HERNIA SHEILENDRA MURCIA 12/26/2011 Active [facility] Emergency [id number] UNABLE TO URINATE VERO MCCLELLAN 12/26/2011 12/27/2011 Active [facility] Emergency [id number] STEPHON CHAUDHARY 12/28/2011 12/28/2011 Discharged [facility] [place] [facility] [id number] NAKIA DOAN 01/18/2015 01/19/2015 [facility] [place] [facility] Emergency [id number] Hipolito Cannonhema 07/10/2016 07/10/2016 [facility] [place] [facility] [id number] Shayy Guillermo 02/04/2017 02/05/2017 [facility] [place] Outpatient [id number] SWETHA BROWER 03/12/2017 Active [facility] Outpatient [id number] SWETHA BROWER 03/21/2017 Active [facility] Outpatient [id number] SWETHA BROWER 07/18/2017 Active [facility] Outpatient [id number] SWETHA BROWER 11/03/2017 Active [facility] Primary [facility] Outpatient [id number] Swetha Enriquez 10/0711/04/2017 [facility] Outpatient [id number] SWETHA BROWER 11/11/2017 Active [facility] Primary [facility] Outpatient [id number] Swetha Enriquez 03/201811/12/2017 [facility] Outpatient [id number] SWETHA BROWER 03/11/2018 Active [facility] Primary Care [facility] Outpatient [id number] Swetha Enriquez 03/201803/12/2018 [facility] Outpatient [id number] SWETHA BROWER 03/19/2018 Active [facility] Primary Care [facility] Ambulatory Pre-Reg [id number] Swetha Enriquez 03/19/2018 03/19/2018 [facility] Outpatient [id number] SWETHA BROWER 06/11/2018 Active [facility] Primary Care [facility]ulatory Pre[facility] [id number] Swetha Enriquez 06/11/2018 06/11/2018 [facility] Outpatient [id number] Swetha Brower Enriquez 01/13/2019 Active [facility] Primary Care [facility] Outpatient [id number] Swetha Brower Enriquez 01/0401/14/2019 [facility] Outpatient [id number] Swetha Brower Enriquez 01/27/2019 Active [facility] Primary [facility] Ambulatory Pre-Reg [id number] Swetha Brower Enriquez 01/27/2019 01/27/2019 [facility] Outpatient [id number] Swetha Brower Enriquez 08/26/2019 Active [facility] [id number] Swetha Brower Enriquez 08/0708/27/2019 Medical [facility] Phone Message [id number] 10/22/2019 10/24/2019 [facility] Outpatient [id number] Swetha Brower Enriquez 12/27/2019 Active [facility] [id number] Swetha Brower Enriquez 12/27/2019 12/27/2019 [facility] Procedures Procedure Code Date Perfomer Comments Source Laparoscopic repair of hernia [id number] 10/06/2011 [facility] Assessment and Plan No Data Provided for This Section Plan of Care No Data Provided for This Section Social History Social History Date Source Social History TypeResponse Alcohol Never Substance Abuse Use: None. Smoking Status Never smoker; Exposure to Tobacco Smoke None; Cigarette Smoking Last 365 Days No; Reg Smoking Cessation Counseling No entered on: 08/26/19 03/12/2017 [facility] No data available for this section 02/05/2017 [facility] [place] No data available for this section 07/10/2016 [place] No data available for this section 01/19/2015 [facility] [place] Family History No Data Provided for This Section Advance Directives No Data Provided for This Section Functional Status No Data Provided for This Section
[2020-06-23] MEDS ORDERED: IOPAMIDOL 370 MG/ML 200 ML INFUS..BTL INJ ONE (11:49)
[2020-06-23] MEDS ORDERED: SODIUM CHLORIDE 0.9% 50ML 50 ML ONE (11:49)
--- NOTE | 2020-06-23 13:27 | Diagnostic Imaging Report ---
EXAMINATION: CT of the abdomen and pelvis with contrast. TECHNIQUE: Spiral CT images of the abdomen and pelvis were performed from the lung bases to the lesser trochanters after the intravenous administration of 100 cc of Isovue 370. Coronal and sagittal reformatted images were obtained. COMPARISON: CT abdomen and pelvis with contrast 04/30/2020 CLINICAL HISTORY:Diffuse abdominal pain DISCUSSION: ABDOMEN/PELVIS: LOWER THORAX:Trace left pleural effusion with adjacent fibrocalcific scar, unchanged. Calcified granuloma laterally within the right lower lobe, unchanged. 5 mm juxtapleural nodule in the lingula, unchanged. HEPATOBILIARY: Subcentimeter hypoattenuating lesion in segment 8 is unchanged and too small to further characterize though statistically likely represent a small cyst. Similar lesion in segment 6 near the inferior liver margin is also unchanged. No intrahepatic biliary dilatation. The gallbladder is unremarkable. SPLEEN: No splenomegaly or focal splenic lesion. PANCREAS: No focal masses or ductal dilatation. ADRENALS: No adrenal nodules. KIDNEYS/URETERS: No hydronephrosis, calculi, or solid or cystic mass lesions. PELVIC ORGANS/BLADDER: Urinary bladder is suboptimally evaluated due to underdistention. The prostate is enlarged measuring 5.1 cm transversely with mass effect on the bladder base PERITONEUM/RETROPERITONEUM: No ascites or pneumoperitoneum. LYMPH NODES: No pelvic sidewall, retroperitoneal, or mesenteric lymphadenopathy. VESSELS: Atherosclerotic calcification of the abdominal aorta, branch vessels, and iliac arterial systems without aneurysmal dilatation. 2 right renal arteries and a single left renal artery. Incidental note of celiac and mesenteric trunk. Portal vein, splenic vein, and central superior mesenteric vein are patent. GI TRACT: There are multiple sigmoid diverticula without wall thickening or adjacent inflammatory change. Diverticula of a lesser concentration elsewhere along the colon. Appendix is normal. Moderate hiatal hernia unchanged. No small bowel dilatation to suggest obstruction. BONES AND SOFT TISSUE: No osseous destructive lesion. Multilevel degenerative disc change and facet arthropathy of the lumbar spine. Small fat-containing right inguinal hernia. Otherwise no focal soft tissue abnormalities. IMPRESSION: No acute intra-abdominal or pelvic CT abnormalities. Sigmoid diverticulosis without findings of diverticulitis. Stable moderate hiatal hernia. Upper endoscopy should be considered for further evaluation as previously recommended. 5 mm nodule laterally within the lingula is indeterminate. Further evaluation with CT scan of the chest without contrast should be performed if the patient is at high risk of malignancy per Fleischner Society 2017 guidelines. Left basilar scarring and pleural thickening likely related to prior infection or inflammation. Signed by: Dr. Nick Rueda M.D. on 06/23/2020 1:24 PM
== END 2020-06-23 13:59 | disposition home or self-care (01) ==
LOC: FSED 11:15
DX: K44.9 Diaphragmatic hernia without obstruction or gangrene (principal); R10.9 Unspecified abdominal pain; I10 Essential (primary) hypertension; K59.00 Constipation, unspecified
CPT/HCPCS: 36415; 74160; 80048; 80076; 81003; 83690; 84484; 85025; 99284; Q9967; J7030

== ENCOUNTER 2020-06-26 22:31 | Emergency (ER) | payer MEDICARE ==
[~2020-06-26] VITALS: Ht 165.1 cm; Wt 66.7 kg
[2020-06-26] MEDS ORDERED: DONNATAL/LIDOCAINE/MAALOX 30 ML SUSP PO ONE (23:00)
[2020-06-26] MEDS ORDERED: MAGNESIUM/ALUMINUM/SIMETHICONE 30 ML UDC ONE (23:09)
[2020-06-26] MEDS ORDERED: LIDOCAINE VISC 2% SOLN 15 ML UDC ONE (23:09)
[2020-06-26] MEDS ORDERED: BELLADONNA ALK/PHENOBARBITAL 5 ML UDC ONE (23:09)
--- NOTE | 2020-06-26 23:10 | Emergency Department Note ---
History of Present Illnes History of Present Illness Chief Complaint: epigastric abd pain on and off for 2 months. Also co constipation for 2 days History of Present Illness This is a 75 year old male . Historian: Patient Arrival Mode: Car Welfare Specialist Required: Yes (by me pt [place]de[place] speaking only) Location: epigastric Quality: burning early satiety and weight loss over the last 2 months Radiation: Reports non-radiation Severity: moderate Onset quality: gradual Duration (how long): month(s) (2) Progression: worsening Chronicity: recurrent Context: Reports other (seen her 2 days ago full workup ct diverticulosis hiatal hernia 5mm nodule lingula cbc and elctrolytes wnl cardiac markers wnl Amylase mildly elevated at 126) Previous service: medications given (omeprozole for 2 months without relief) Past Medical/Family History Physician Review I have reviewed the patient's past medical and family history. Any updates have been documented here. Past Medical History Recent Fever: No Clinical Suspicion of Infectio: No New/Unexplained Change in Ment: No Past Medical History: Hypertension Past Surgical History: Hernia Repair Social History Smoking Cessation: Never Smoker Counseling Performed: No Alcohol Use: None Any Illegal Drug Use: No Other Any Pre-Existing Lines (PICC,: No Review of Systems Review of Systems Constitutional: Reports no symptoms EENTM: Reports no symptoms Cardiovascular: Reports no symptoms Respiratory: Reports no symptoms Gastrointestinal: Reports other (co mass in inguinal area right side.) Genitourinary: Reports no symptoms Musculoskeletal: Reports no symptoms Integumentary: Reports no symptoms Neurological: Reports no symptoms Psychological: Reports no symptoms Endocrine: Reports no symptoms Hematological/Lymphatic: Reports no symptoms Review of other systems: All other systems negative Physical Exam Related Data Allergies: Coded Allergies: No Known Allergies (Unverified , 04/30/20) Triage Vital Signs Vital Signs Date Time Temp Pulse Resp B/P (MAP) Pulse Ox O2 Delivery O2 Flow Rate FiO2 06/26/20 22:38 97.2 68 16 170/80 96 Room Air Vital signs reviewed: Yes Physical Exam CONSTITUTIONAL Constitutional: Present well-developed, Present well-nourished HENT HENT: Present normocephalic, Present atraumatic, Present oropharynx clear/moist, Present oropharynx normal EYES Eyes: Reports PERRL, Reports conjunctivae normal NECK Neck: Present ROM normal, Present supple PULMONARY Pulmonary: Present effort normal, Present breath sounds normal CARDIOVASCULAR Cardiovascular: Present regular rhythm, Present heart sounds normal, Present intact distal pulses, Present capillary refill normal GASTROINTESTINAL Abdominal: Present soft, Present bowel sounds normal, Present tender (epigastric area without guarding or rebound), Present hernia (left inguinal hernia freely reducible), Present other (fecal occult blood very mildly positive OC done no gross blood or melena stool brown. No fecal impaction) GENITOURINARY Genitourinary: Present penis normal SKIN Skin: Present warm, Present dry MUSCULOSKELETAL Musculoskeletal: Present ROM normal NEUROLOGICAL Neurological: Present alert, Present oriented x 3, Present DTRs normal, Present no gross motor or sensory deficits PSYCHOLOGICAL Psychological: Present mood/affect normal, Present behavior normal, Present thought content normal, Present judgement normal Assessment & Plan Medical Decision Making MDM early satiety and food getting stuck in esophagous (solids only ) concernig and red flag sign of weight loss . Pt told imperative that he see the [employer]ctor on 06/29 as scheduled by his primary doctor. Reassessment Reassessment time: 23:29 (complete relief of epigastric pain with GI cocktail) Assessment & Plan Final Impression: (1) Epigastric abdominal pain (2) Esophageal dysphagia (3) Constipation (4) Inguinal hernia Depart Disposition: HOME, SELF-CARE Last Vital Signs Date Time Temp Pulse Resp B/P (MAP) Pulse Ox O2 Delivery O2 Flow Rate FiO2 06/26/20 22:38 97.2 68 16 170/80 96 Room Air Home Meds Active Scripts Polyethylene Glycol 3350 (MIRALAX) 17 Gm Powd.pack, 17 GM PO DAILY PRN for CONSTIPATION for 5 Days, GM 0 Refills Prov:CONCETTA MORALES MD 06/26/20 Docusate Sodium (COLACE) 100 Mg Cap, 100 MG PO BID for 10 Days, #30 CAP Prov:HARLEY MUNROE MD 04/30/20 Amoxicillin/Potassium Clav (AUGMENTIN 875-125 TABLET) 1 Each Tablet, 1 EACH PO BID for 10 Days, #20 Prov:HARLEY MUNROE MD 04/30/20 Reported Medications Losartan Potassium (LOSARTAN POTASSIUM) 25 Mg Tablet, DAILY 04/30/20 Physician Attestation Provider Attestation home meds prilosec 40 mg po daily, lipitor 40 mg po daily, finasteried 5 mg po daily, trazadone 50 mg prn and ,losartin 100 mg po daily CONCETTA MORALES MD Jun 26, 2020 23:10
[2020-06-26] MEDS ORDERED: MIRALAX17 GM PO (23:29)
== END 2020-06-26 23:39 | disposition home or self-care (01) ==
LOC: FSED 22:40
DX: R10.13 Epigastric pain (principal); R13.10 Dysphagia, unspecified; K40.90 Unilateral inguinal hernia, without obstruction or gangrene, not specified as recurrent; K59.00 Constipation, unspecified; I10 Essential (primary) hypertension
CPT/HCPCS: 99283